=== PATIENT | male | born 1975 | race Caucasian/White ===

== ENCOUNTER → 2017-09-20 08:41 | Outpatient (CLI) | payer OTHER, SELFPAY ==
[2017-09-20 10:48] LABS: Alanine Aminotransferase 81 U/L (12-78); Albumin Level 4.2 gm/dL (3.4-5.0); Albumin/Globulin Ratio 1.4 (1.1-1.8); Alkaline Phosphatase 93 U/L (46-116); Anion Gap 12.5 mEq/L (5-15); Aspartate Amino Transferase 43 U/L (15-37); Bilirubin,Total 0.4 mg/dL (0.2-1.0); Blood Urea Nitrogen 13 mg/dL (7-18); Calcium 9.2 mg/dL (8.5-10.1); Carbon Dioxide 27 mmol/L (21.0-32.0); Chloride 106 mmol/L (98-107); Chol/HDL Ratio 5.5 (1-3.5); Cholesterol 210 mg/dL (140-200); Creatinine,Serum 1.03 mg/dL (0.70-1.30); Estimated Glomerular Filt Rate 80 ml/min (>60); GFR (African American) 97 ML/MIN (>60); Glucose 90 mg/dL (74-106); HDL Cholesterol 38 mg/dL (27-67); LDL Cholesterol 128 mg/dL (0-130); Potassium 4.5 mmoL/L (3.5-5.1); Sodium 141 mmol/L (136-145); Total Protein,Serum 7.2 gm/dL (6.4-8.2); Triglycerides 221 mg/dL (30-200); VLDL Cholesterol 44 mg/dL (0-40)
[2017-09-21 09:14] LABS: Vitamin D 25 Hydroxy 14.2 ng/mL (30.0-100.0)
== END ==
PROVIDERS: PCP Nurse Practitioner Family; Visit Provider Nurse Practitioner Family
DX: E78.1 Pure hyperglyceridemia (principal); I10 Essential (primary) hypertension; E55.9 Vitamin D deficiency, unspecified
CPT/HCPCS: 36415; 80053; 80061; 82652

== ENCOUNTER → 2018-01-02 17:18 | Outpatient (CLI) | payer OTHER, SELFPAY ==
--- NOTE | 2018-01-02 17:42 | XR_ITS ---
XR chest 2V HISTORY: Bronchopneumonia with cough ORDERING PHYSICIAN: Ying [place] PATIENT AGE: 42 years COMPARISON: FINDINGS: The cardiomediastinal silhouette and pulmonary vascularity are within normal limits. The lungs are clear without infiltrates, suspicious nodules, or pleural effusions. No acute bony abnormalities. IMPRESSION: Negative chest, no acute finding
== END ==
PROVIDERS: PCP Nurse Practitioner Family; Visit Provider Nurse Practitioner Family
DX: J18.0 Bronchopneumonia, unspecified organism (principal); R05 Cough
CPT/HCPCS: 71046

== ENCOUNTER → 2018-02-22 08:20 | Outpatient (CLI) | payer OTHER, SELFPAY ==
[2018-02-22 10:09] LABS: Alanine Aminotransferase 70 U/L (12-78); Albumin Level 4.1 gm/dL (3.4-5.0); Albumin/Globulin Ratio 1.2 (1.1-1.8); Alkaline Phosphatase 119 U/L (46-116); Anion Gap 9.9 mEq/L (5-15); Aspartate Amino Transferase 28 U/L (15-37); Bilirubin,Total 0.5 mg/dL (0.2-1.0); Blood Urea Nitrogen 15 mg/dL (7-18); Calcium 9.5 mg/dL (8.5-10.1); Carbon Dioxide 31 mmol/L (21.0-32.0); Chloride 106 mmol/L (98-107); Creatinine,Serum 0.89 mg/dL (0.70-1.30); Estimated Glomerular Filt Rate 94 ml/min (>60); GFR (African American) 114 ML/MIN (>60); Globulin 3.3 gm/dl (1.3-3.2); Glucose 94 mg/dL (74-106); Magnesium 2.1 mg/dL (1.4-2.2); Potassium 4.9 mmoL/L (3.5-5.1); Sodium 142 mmol/L (136-145); Total Protein,Serum 7.4 gm/dL (6.4-8.2)
[2018-02-22 16:01] LABS: Chol/HDL Ratio 4.3 (1-3.5); Cholesterol 171 mg/dL (140-200); HDL Cholesterol 40 mg/dL (27-67); LDL Cholesterol 98 mg/dL (0-130); Triglycerides 164 mg/dL (30-200); VLDL Cholesterol 33 mg/dL (0-40)
== END ==
PROVIDERS: Visit Provider Nurse Practitioner Family
DX: I10 Essential (primary) hypertension (principal); E78.1 Pure hyperglyceridemia
CPT/HCPCS: 36415; 80053; 80061; 83735

== ENCOUNTER 2020-06-11 04:59 | Emergency (ER) | payer OTHER, SELFPAY ==
[2020-06-11 05:01] VITALS: BP 131/87; PULSE 95; RESP 16; TEMP 36.8; O2SAT 100; BMI 32.1
--- NOTE | 2020-06-11 05:17 | HMH.EDSKAF ---
ED Disposition Clinical Impression: Urticaria Disposition: Home, Self-Care Condition on Discharge: Good Instructions: DI for Itching Additional Instructions: see pcp for follow up and use claritin during day and benadryl at night Prescriptions: predniSONE [Prednisone 20mg Tab] 20 mg PO BID #10 tab Transmission Status: Pending to [facility] #[id number] Referrals: Sheron Doyle APRN [Primary Care Provider] - - Critical Care Critical Care Time: No Attestation: On 06/11/20, the high probability of a clinically significant, sudden or life threatening deterioration of the following system(s) required my full and direct attention, intervention and personal management. The time I documented below is in addition to time spent performing reported procedures but includes the following listed in this critical care notation. Medical Decision Making - Medical Records Medical records reviewed: Yes: I reviewed the patient's medical records. - Jake Inquiry Pt receiving controlled substance: No Vital Signs: 06/11/20 05:01 Temperature 98.2 F Temperature Source Oral Pulse Rate [Left Radial] 95 H Respiratory Rate 16 Blood Pressure [Right Arm] 131/87 Blood Pressure Mean [Right Arm] 101 Blood Pressure Source [Right Arm] Automatic Cuff Blood Pressure Position [Right Arm] Sitting 02 Sat by Pulse Oximetry 100 Oxygen Delivery Method Room Air Skin/Abscess/FB HPI - General Chief complaint: Skin/Abscess/Foreign Body Stated complaint: Legs are itching Time Seen by Provider: 06/11/20 05:17 Mode of Arrival: Ambulatory Source of Information: Patient, Medical Record Limitations: No Limitations Description of Symptoms (Recalled from ER Triage Doc. by RN): pt c/o itching in both legs since yesterday. 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 pt denies any rash or reddness on legs and denies taking any OTC medication for itching. - History of Present Illness HPI narrative: diffuse itching and has exposure as heating and air Onset (ago): hour(s) Tetanus up to date: unsure Location: generalized Severity: moderate Associated symptoms: other (itching ) Treatments prior to arrival: none - Related Data Previous Rx's Medication Instructions Recorded predniSONE [Prednisone 20mg 20 mg PO BID #10 tab 06/11/20 Tab] [facility] History - Hepatitis A Screen Drug use history?: No High risk sexual behaviors?: No History of sexually transmitted infection?: No Currently employed?: No Childcare worker?: No Do you have indoor plumbing?: Yes Do you have electricity?: Yes Attestation statement:: This patient has been screened for Hepatitis A risk factors. I have reviewed the patient's past medical history: Yes ROS Obtained: Yes All systems reviewed & no additional complaints - Constitutional Constitutional: Denies fever(s) - Eyes Eyes: Denies change in vision - ENT Ears, Nose, Mouth, and Throat: Denies sore throat, Denies throat swelling - Cardiovascular Cardiovascular: Denies chest pain - Respiratory Respiratory: No shortness of breath - Gastrointestinal Gastrointestingal: Denies: abdominal pain - Genitourinary Male Genitourinary: Denies hematuria Female Genitourinary: Reports hematuria - Musculoskeletal Musculoskeletal: Denies joint pain, Denies joint swelling - Integumentary/Breasts Skin/Breast: Reports as per HPI, Denies rash - Neurologic Neurologic: Denies focal weakness, Denies seizure-like activity Physical Exam - General General appearance: alert - Head Head exam: normocephalic - Eye Eye exam: Present: PERRL, EOMI, scleral icterus - ENT ENT exam: Present: mucous membranes moist - Neck Neck exam: Present: trachea midline - Respiratory Respiratory exam: Present: normal lung sounds bilaterally. Absent: respiratory distress - Cardiovascular Cardiovascular exam: Present: regular rate - Extremities Exam E
[2020-06-11 06:06] VITALS: BP 127/94; PULSE 91; RESP 15; TEMP 36.7; O2SAT 100
== END 2020-06-11 06:07 | disposition home or self-care (01) ==
PROVIDERS: Emergency Provider Emergency Medicine; PCP Nurse Practitioner
DX: L50.9 Urticaria, unspecified (principal)
CPT/HCPCS: 99281

== ENCOUNTER 2022-07-15 16:44 | Emergency (ER) | payer OTHER, SELFPAY ==
--- NOTE | 2022-07-15 17:37 | XR_ITS ---
PROCEDURE INFORMATION: Exam: XR Left Ankle Exam date and time: 07/15/2022 5:40 PM Age: 46 years old Clinical indication: Injury or trauma; Other: Post fell on top of lt foot; Crushing; Ankle; Left; Injury date: 07/14/22; Injury details: Drop heavy post on top of lt foot. C/O pain and swelling TECHNIQUE: Imaging protocol: Radiologic exam of the Left ankle. Views: 3 or more views. COMPARISON: CR XR FOOT LT MIN 3V 07/15/2022 5:38 PM FINDINGS: Bones/joints: Mild spurring at the Achilles tendon calcaneal attachment. No fractures. 5 mm bone island in the distal tibia. The ankle mortise joint is well maintained. No joint effusion. The visualized hindfoot and midfoot are grossly well aligned. Soft tissues: No periostitis or osteolysis. No gross soft tissue abnormalities. No radiopaque foreign bodies. IMPRESSION: No acute findings.
--- NOTE | 2022-07-15 17:37 | XR_ITS ---
PROCEDURE INFORMATION: Exam: XR Left Foot Exam date and time: 07/15/2022 5:38 PM Age: 46 years old Clinical indication: Injury or trauma; Other: Dropped post on top of lt foot; Crushing; Left; Injury date: 07/14/22; Injury details: Drop heavy post on top of lt foot. C/O pain and swelling TECHNIQUE: Imaging protocol: Radiologic exam of the Left foot. Views: 3 or more views. COMPARISON: No relevant prior studies available. FINDINGS: Bones/joints: Mild osteoarthritic joint space narrowing with subarticular sclerosis and marginal spurring in the first MTP joint. No fractures. Normal alignment is maintained in the midfoot, hindfoot, and forefoot. 5 mm bone island in the anterior distal tibia. Mild spurring/calcification at the Achilles tendon calcaneal attachment. No gross ankle joint effusion. No hindfoot coalition. Soft tissues: No periostitis or osteolysis. No gross soft tissue abnormalities. No radiopaque foreign bodies. Other findings: Normal mineralization. IMPRESSION: No acute findings.
--- NOTE | 2022-07-15 17:37 | EXP.UTC ---
Discharge Plan Disposition Patient Disposition: Home, Self-Care Condition: Good Prescriptions Prescriptions: New ibuprofen [IBU] 800 mg tablet 800 mg PO Q8HP PRN (Reason: Moderate Pain) Qty: 30 0RF No Action prednisone 20 MG tablet 20 mg PO BID Qty: 10 0RF Referrals Follow up/Referrals: Sheron Doyle APRN [Primary Care Provider] - See instructions Angelita Rodriguez DPM [Staff Physician] - See instructions Activity Restrictions/Add. Instructions Additional Instructions/Restrictions: Rest the extremity, apply ice for 15 minutes as tolerated three or four times per day, Wear the anabel wrap for compression, Elevate the extremity as tolerated while you are resting. Take ibuprofen for pain. I sent in a prescription to your pharmacy. Follow up with Dr. Rodriguez (podiatry). I put in a referral but you need to call his office and schedule an appointment. Follow up with your regular doctor. GO TO THE ER FOR ANY WORSENING SYMPTOMS Clinical Impressions Clinical Impression: Crush injury of right foot, Foot pain, right Instructions Patient Instructions: DI for Crush Injury Discharge ED Provider: Pranav Quinn [facility] General Stated complaint: AO 07/14 @1500 injured L foot Time Seen by Provider: 07/15/22 17:37 History of Present Illness Provider Complaint: He dropped a metal fence post on his left foot yesterday. He has had left foot pain that is worse with bearing weight since then. Related Data Previous Rx's Medication Instructions Recorded prednisone 20 mg tablet 20 mg PO BID #10 tabs 06/11/20 ibuprofen 800 mg tablet (IBU) 800 mg PO Q8HP PRN Moderate Pain 07/15/22 #30 tabs Allergies Allergy/AdvReac Type Severity Reaction Status Date / Time Penicillins Allergy Verified 07/15/22 17:50 [facility] Social History Smoking Status: Never smoker alcohol intake: never current occupational status: employed Travel in the last 8 weeks: None ROS Obtained: Yes All systems reviewed & no additional complaints except as documented Constitutional Constitutional: Denies chills and Denies fever(s) Integumentary/Breasts Skin/Breast: Denies redness, Denies rash and Denies wounds Neurologic Neurologic: Denies paresthesias Physical Exam General General appearance: alert and in no apparent distress Head Head exam: atraumatic, normocephalic and normal inspection Eye Eye exam: Present normal appearance, PERRL and EOMI ENT ENT exam: Present normal exam, normal oropharynx, mucous membranes moist, TM's normal bilaterally and normal external ear exam Neck Neck exam: Present normal inspection, full ROM and trachea midline; Absent meningismus or lymphadenopathy Chest Chest inspection: Present normal inspection and symmetric chest wall rise; Absent tenderness Respiratory Respiratory exam: Present normal lung sounds bilaterally; Absent respiratory distress Cardiovascular Cardiovascular exam: Present regular rate and normal rhythm; Absent JVD Abdominal Exam Abdominal exam: Present soft and normal bowel sounds; Absent distention, tenderness or guarding Extremities Exam Extremities exam: Present normal capillary refill; Absent calf tenderness Expanded Lower Extremity Exam Left: Ankle exam: Present normal inspection and full ROM; Absent tenderness Foot/toe exam: Present full ROM, tenderness and swelling; Absent abrasion, laceration, ecchymosis, deformity, crepitus, dislocation, erythema, amputation, puncture wound, foreign body, calcaneal tenderness, tenderness at base of 5th metatarsal, nail avulsion or subungual hematoma Top foot image: 1. area of swelling and tenderness Back Exam Back exam: Present normal inspection; Absent tenderness Neurological Exam Neurological exam: Present alert and oriented X3 Psychiatric Psychiatric exam: Present normal affect and normal mood Skin Skin exam: Present warm, dry, intact and normal color
[2022-07-15 17:43] VITALS: BP 117/78; PULSE 87; RESP 16; TEMP 37.2; O2SAT 99; BMI 34.8
[2022-07-15 18:23] VITALS: BP 117/78; PULSE 87; RESP 16; TEMP 37.2
== END 2022-07-15 18:24 | disposition home or self-care (01) ==
PROVIDERS: Emergency Provider Nurse Practitioner Family; PCP Nurse Practitioner
DX: M79.672 Pain in left foot (principal); M79.89 Other specified soft tissue disorders; M19.90 Unspecified osteoarthritis, unspecified site; Z79.1 Long term (current) use of non-steroidal anti-inflammatories (NSAID); Z79.52 Long term (current) use of systemic steroids; W20.8XXA Other cause of strike by thrown, projected or falling object, initial encounter
CPT/HCPCS: 73610; 73630; 99213; G0463

== ENCOUNTER 2024-01-26 17:53 | Emergency (ER) | payer BC, SELFPAY ==
[2024-01-26 17:54] VITALS: BP 126/86; PULSE 81; RESP 18; TEMP 36.6; O2SAT 97; BMI 33.5
[2024-01-26 18:00] VITALS: BP 133/93; PULSE 80; PULSE 83; O2SAT 96
--- NOTE | 2024-01-26 18:02 | XR_ITS ---
PROCEDURE INFORMATION: Exam: XR Right Ankle Exam date and time: 01/26/2024 6:05 PM Age: 48 years old Clinical indication: Injury or trauma; Fall; Other: Inversion; Additional info: Inversion injury TECHNIQUE: Imaging protocol: Radiologic exam of the right ankle. Views: 3 or more views. COMPARISON: CR XR TIBIA FIBULA RT 2V 26/01/2024 18:05 FINDINGS: Bones/joints: There is normal anatomic alignment of the right ankle. No evidence of a fracture. The ankle mortise view is normal. The talus and calcaneus are intact. The bones of the midfoot are unremarkable. Calcaneal enthesophyte. Soft tissues: Right ankle soft tissue swelling. IMPRESSION: Right ankle soft tissue swelling without fracture
--- NOTE | 2024-01-26 18:02 | XR_ITS ---
PROCEDURE INFORMATION: Exam: XR Right Tibia and Fibula Exam date and time: 01/26/2024 6:05 PM Age: 48 years old Clinical indication: Pain; Ankle; Right; Additional info: Inversion ankle injury mid rowe down pain TECHNIQUE: Imaging protocol: Radiologic exam of the right tibia and fibula. Views: 2 views. COMPARISON: CR XR ANKLE RT MIN 3V 26/01/2024 18:05 FINDINGS: Bones/joints: There is normal anatomic alignment of the right tibia and fibula at the knee and ankle. No fracture is identified. No evidence of a right knee effusion. Small enthesophyte at the Achilles calcaneal insertion Soft tissues: Normal. IMPRESSION: No evidence of a right tib-fib fracture
--- NOTE | 2024-01-26 18:03 | HMH.EDGENADL ---
Discharge Plan Disposition Patient Disposition: Home, Self-Care Prescriptions Prescriptions: No Action prednisone 20 MG tablet 20 mg PO BID Qty: 10 0RF ibuprofen [IBU] 800 mg tablet 800 mg PO Q8HP PRN (Reason: Moderate Pain) Qty: 30 0RF Referrals Follow up/Referrals: Sheron Doyle APRN [Primary Care Provider] - See instructions Ej Davila DO [Staff Physician] - See instructions Activity Restrictions/Add. Instructions Additional Instructions/Restrictions: At this time it was felt you are safe to be discharged home. If new or worsening symptoms please do not hesitate to return the emergency department. You likely sprained your ankle however if symptoms persist beyond 2 weeks please call and schedule appointment with Dr. Davila as it is possible that you may have damaged ligaments beyond spontaneous healing. Clinical Impressions Clinical Impression: Ankle sprain Discharge ED Provider: Jean-Claude Cullen General Adult HPI General Chief complaint: Extremity Injury, Lower Stated complaint: AO01/25 fall RT ankle inj Time Seen by Provider: 01/26/24 17:58 Mode of Arrival: Wheelchair Source of Information: Patient Limitations: No Limitations Description of Symptoms (Recalled from ER Triage Doc. by RN): Approx 1 hour ago the patient stepped off a porch into a hole and rolled his right ankle. Complaint of right ankle pain. States he heard a pop when this happened. History of Present Illness HPI narrative: Patient is a 48-year-old male with no pertinent past medical history presents emergency department for evaluation of an inversion injury to his right ankle. Patient stepped on a porch and his foot went into a hole resulting in an inversion injury to his right foot. No other traumatic complaints at this time. Related Data Previous Rx's Medication Instructions Recorded prednisone 20 mg tablet 20 mg PO BID #10 tabs 06/11/20 ibuprofen 800 mg tablet (IBU) 800 mg PO Q8HP PRN Moderate Pain 07/15/22 #30 tabs Allergies Allergy/AdvReac Type Severity Reaction Status Date / Time Penicillins Allergy Verified 07/15/22 17:50 [facility] Disclaimer: The information contained in this section may have been updated after the patient was seen, as this information can be updated by other users. Social History (Updated 07/15/22 @ 20:50 by Pranav Quinn APRN) Smoking Status: Unknown if ever smoked alcohol intake: never current occupational status: employed Travel in the last 8 weeks: None ROS Obtained: Yes Systems reviewed as appropriate & no additional complaints except as documented Physical Exam General General appearance: alert and in no apparent distress Head Head exam: atraumatic and normocephalic Eye Eye exam: Present PERRL ENT ENT exam: Present mucous membranes moist Neck Neck exam: Present normal inspection Chest Chest inspection: Present normal inspection and symmetric chest wall rise Respiratory Respiratory exam: Absent respiratory distress Cardiovascular Cardiovascular exam: Present regular rate and normal rhythm Abdominal Exam Abdominal exam: Present soft Extremities Exam Extremities exam: Present other (Swelling along the lateral aspect of the right foot, tenderness mid rowe down on the right lower extremity to the lateral malleolus. No tenderness over the distal foot, distally neurovascularly intact, intact capillary refill all digits of the right foot.) Neurological Exam Neurological exam: Present alert Psychiatric Psychiatric exam: Present normal affect Skin Skin exam: Present warm and dry Medical Decision Making Jake Inquiry Pt receiving controlled substance: No Vital Signs: 01/26/24 17:54 01/26/24 18:00 01/26/24 18:00 Temperature 97.9 F Temperature Source Oral Pulse Rate 83 80 Pulse Rate [Radial] 81 Respiratory Rate 18 Blood Pressure 133/93 H Blood Pressure [Right Arm] 126/86 Blood Pressure Mean 106 Blood Pressure Mean [Right Arm] 99 Blood Pressure Source [Right Arm] Automatic Cuff Blood Pressure Position [Right Arm] Sitting 02 Sat by Pulse Oximetry 97 96 96 Oxygen Delivery Method Room Air Room Air 01/26/24 18:30 Temperature Temperature Source Pulse Rate 83 Pulse Rate [Radial] Respiratory Rate Blood Pressure 125/81 Blood Pressure [Right Arm] Blood Pressure Mean Blood Pressure Mean [Right Arm] Blood Pressure Source [Right Arm] Blood Pressure Position [Right Arm] 02 Sat by Pulse Oximetry 94 L Oxygen Delivery Method Room Air Orders (Tests/Meds): ED MEDICATIONS Discontinued Medications Generic Name Dose Route Start Last Admin Trade Name Freq PRN Reason Stop Dose Admin Acetaminophen 1,000 mg 01/26/24 18:01 01/26/24 18:09 Acetaminophen 500mg Tab PO 01/26/24 18:02 1,000 mg ONCE ONE Administration Ibuprofen 600 mg 01/26/24 18:01 01/26/24 18:09 Ibuprofen 600 Mg Tablet PO 01/26/24 18:02 600 mg ONCE ONE Administration ORDERS Category Date Time Status Ankle XR -Right minimum 3 Views [XR ankle RT min 3V] Exams 01/26/24 18:02 Completed Stat Fibula/tibia XR right 2 views [XR tibia fibula RT 2V] Exams 01/26/24 18:02 Completed Stat Medical Decision Narrative: In summary patient is a 48-year-old male past medical history described above presents emergency department for evaluation inversion injury to his right foot. Patient is hemodynamically stable upon arrival. Based on history and physical exam differential diagnosis includes fracture, musculoskeletal strain, ligamentous injury, among others. Limited trauma survey will be conducted with plain film of the right tib-fib, right ankle. Initial interventions include Tylenol and ibuprofen. X-ray informally visualized by me, no acute displaced fracture. Formal read shows no acute fracture, soft tissue swelling. Patient was Shyam wrapped at bedside and given crutches and is appropriate for discharge Critical Care Critical Care Time Critical Care Time: No
[2024-01-26] MEDS: IBUPROFEN 600 MG TABLET PO (18:09)
[2024-01-26] MEDS: ACETAMINOPHEN 500MG TAB 1000 MG PO (18:09)
--- NOTE | 2024-01-26 18:09 | PC.NURSE ---
radiology in room to do XRay at this time
--- NOTE | 2024-01-26 18:15 | PC.NURSE ---
XR AT BEDSIDE
[2024-01-26 18:30] VITALS: BP 125/81; PULSE 83; O2SAT 94
--- NOTE | 2024-01-26 18:55 | PC.NURSE ---
Pt to bathroom by WC at this time
[2024-01-26 19:52] VITALS: BP 128/76; PULSE 68; RESP 20; TEMP 36.6; O2SAT 97
== END 2024-01-26 19:53 | disposition home or self-care (01) ==
PROVIDERS: Emergency Provider Emergency Medicine; PCP Nurse Practitioner
DX: S93.401A Sprain of unspecified ligament of right ankle, initial encounter (principal); X50.1XXA Overexertion from prolonged static or awkward postures, initial encounter
CPT/HCPCS: 73590; 73610; 99283